=== PATIENT | female | born 1955 | race Two or more races ===

== ENCOUNTER 2019-04-20 14:47 | Emergency (ER) | payer OTHER ==
[~2019-04-20] VITALS: Ht 165.1 cm; Wt 78.5 kg
[~2019-04-20 14:47] MED LIST: ACET500T68 PO; ALPR0.25 PO; DIPH50CA PO; ESTR1TAB4 PO; HYDR-2761 PO; LIPITOR80 MG PO; NAPR-683 PO; OMEP20CA10 PO
[2019-04-20 14:57] VITALS: BP 138/75
[2019-04-20] MEDS ORDERED: MECLIZINE HCL 12.5 MG TABLET. PO STA (15:14)
--- NOTE | 2019-04-20 15:19 | PHYS DOC ---
Past Medical History Past Medical History: High Cholesterol Past Surgical History: No Surgical History Alcohol Use: None Drug Use: None Adult General Chief Complaint Chief Complaint: DIZZY/LIGHT HEADED HPI HPI Patient is a 63 year old female who presents with dizziness been ongoing for 1 week. The patient describes the dizziness as the room spinning. She also says as associated symptoms include nausea, and vomiting. The patient states that this is never happened before. She got worse earlier today when she is driving. Review of Systems Review of Systems Constitutional: Reports dizziness. Denies fever or chills [] Eyes: Denies change in visual acuity, redness, or eye pain [] HENT: Denies nasal congestion or sore throat [] Respiratory: Denies cough or shortness of breath [] Cardiovascular: No additional information not addressed in HPI [] GI: Denies abdominal pain, nausea, vomiting, bloody stools or diarrhea [] : Denies dysuria or hematuria [] Musculoskeletal: Denies back pain or joint pain [] Integument: Denies rash or skin lesions [] Neurologic: Denies headache, focal weakness or sensory changes [] Endocrine: Denies polyuria or polydipsia [] Complete systems were reviewed and found to be within normal limits, except as documented in this note. Current Medications Current Medications Current Medications Medications (Trade) Dose Ordered Sig/Emilee Start Time Stop Time Status Last Admin Dose Admin Meclizine HCl (Antivert) 25 mg 1X STAT 04/20/19 15:14 04/20/19 15:17 DC 04/20/19 15:26 25 MG Allergies Allergies Allergies Coded Allergies Type Severity Reaction Last Updated Verified No Known Drug Allergies 09/08/15 No Physical Exam Physical Exam Constitutional: Well developed, well nourished, no acute distress, non-toxic appearance. [] HENT: Normocephalic, atraumatic, bilateral external ears normal, oropharynx moist, no oral exudates, nose normal. [] Eyes: PERRLA, EOMI, conjunctiva normal, no discharge. [] Neck: Normal range of motion, no tenderness, supple, no stridor. [] Cardiovascular:Heart rate regular rhythm, no murmur [] Lungs & Thorax: Bilateral breath sounds clear to auscultation [] Abdomen: Bowel sounds normal, soft, no tenderness, no masses, no pulsatile masses. [] Skin: Warm, dry, no erythema, no rash. [] Back: No tenderness, no CVA tenderness. [] Extremities: No tenderness, no cyanosis, no clubbing, ROM intact, no edema. [] Neurologic: Alert and oriented X 3, normal motor function, normal sensory function, no focal deficits noted. [] Psychologic: Affect normal, judgement normal, mood normal. [] Current Patient Data Vital Signs Vital Signs Date Time Temp Pulse Resp B/P (MAP) Pulse Ox O2 Delivery O2 Flow Rate FiO2 04/20/19 14:57 98.6 77 16 138/75 (96) 99 Room Air 98.6 EKG EKG [] Radiology/Procedures Radiology/Procedures [][facility] [address] [place] [address] IMAGING REPORT Signed PATIENT: LAUREN SOLANOACCOUNT: [id number] : 1955 LOCATION: ER AGE: 63 SEX: F EXAM STATUS: PRE ER ORD. PHYSICIAN: ERNESTO MASSEY APRN REASON: dizziness, vertigo PROCEDURE: CT HEAD WO CONTRAST CT scan of the head without contrast 04/20/2019 Clinical History: Dizziness and vertigo. Technique: Unenhanced, contiguous, 5 mm axial sections were obtained through the head. One or more of the following individualized dose reduction techniques were utilized for this study: 1. Automated exposure control. 2. Adjustment of the mA and/or kV according to patient size. 3. Use of iterative reconstruction technique. Findings: There is generalized parenchymal atrophy. No acute parenchymal abnormality is seen. No extra-axial fluid collection is noted. No skull fracture is seen. Impression: No acute intracranial abnormality is seen. Electronically signed by: Esau Kirby MD (04/20/2019 3:31 PM) [facility] DICTATED and SIGNED BY: ESAU KIRBY MD DATE: 04/20/19 1539 Course & Med Decision Making Course & Med Decision Making Pertinent Labs and Imaging studies reviewed. (See chart for details) Appears to be Benign Positional Vertigo. Will give 25 mg of Meclizine and get a CT of head. Patient is feeling better after Meclizine. Will d/c home to follow up with ENT. Steve Clarkimer Steve Disclaimer This electronic medical record was generated, in whole or in part, using a voice recognition dictation system. Departure Departure Impression: Primary Impression: Vertigo Disposition: 01 HOME, SELF-CARE Condition: STABLE Referrals: KATHY FLORES (PCP) PATTIE BARTHOLOMEW MD Patient Instructions: Benign Positional Vertigo Additional Instructions: Thank you for visiting [facility]. We appreciate you trusting us with your care. If any additional problems come up don't hesitate to return to visit us. Please follow up with your primary care provider so they can plan additional care if needed and know about the problem that you had. If symptoms worsen come back to the Emergency Department. Any concerning symptoms that start such as chest pain, shortness of air, weakness or numbness on one side of the body, running high fevers or any other concerning symptoms return to the ER. Please follow up with an ear nose and throat doctor as needed. Scripts Meclizine Hcl (MECLIZINE HCL) 25 Mg Tablet 1 TAB PO PRN TID PRN for DIZZINESS, #30 TAB Prov: ERNESTO MASSEY APRN 04/20/19 ERNESTO MASSEY APRN Apr 20, 2019 15:19
--- NOTE | 2019-04-20 15:34 | RAD ---
CT scan of the head without contrast 04/20/2019 Clinical History: Dizziness and vertigo. Technique: Unenhanced, contiguous, 5 mm axial sections were obtained through the head. One or more of the following individualized dose reduction techniques were utilized for this study: 1. Automated exposure control. 2. Adjustment of the mA and/or kV according to patient size. 3. Use of iterative reconstruction technique. Findings: There is generalized parenchymal atrophy. No acute parenchymal abnormality is seen. No extra-axial fluid collection is noted. No skull fracture is seen. Impression: No acute intracranial abnormality is seen. Electronically signed by: Esau Kirby MD (04/20/2019 3:31 PM) [facility]
[2019-04-20] MEDS ORDERED: MECL25TA3 PO (16:15)
== END 2019-04-20 16:25 | disposition home or self-care (01) ==
LOC: ER 14:47
DX: R42 Dizziness and giddiness (principal); R11.2 Nausea with vomiting, unspecified; E78.00 Pure hypercholesterolemia, unspecified
CPT/HCPCS: 70450; 99284; J8597